=== PATIENT | female | born 2005 | race Two or more races ===

== ENCOUNTER 2025-04-17 11:05 | Emergency (ER) | payer OTHER, SELFPAY ==
[~2025-04-17 11:05] MED LIST: CEPH500C PO
[2025-04-17 15:26] VITALS: BP 128/88; TEMP 97.2; O2SAT 97
== END 2025-04-17 15:31 | disposition home or self-care (01) ==
LOC: M ED 11:05
DX: S92.492A Other fracture of left great toe, initial encounter for closed fracture (principal); Y92.9 Unspecified place or not applicable; Y93.9 Activity, unspecified; Y99.9 Unspecified external cause status; Z79.2 Long term (current) use of antibiotics